=== PATIENT | female | born 2000 | race Caucasian/White ===

== ENCOUNTER 2019-08-22 02:38 | Inpatient (IN) | payer MEDICAID, SELFPAY ==
[2019-08-22] VITALS (65 sets, daily range): BP systolic 0–172; BP diastolic 0–118; PULSE 70–130; RESP 15–22; TEMP 36.7–37.2; O2SAT 89–100; BMI 23.0
[2019-08-22] MEDS: ampicillin 2,000 MG in sodium chloride 0.9% (plus) 50 ML 100 MG IV (02:34)
[2019-08-22] MEDS: lactated ringers 1,000 ML 999 ML IV (02:39)
[2019-08-22 02:44] LABS: Basophils % 0.2 %; Eosinophils % 0.3 %; Hematocrit 37.2 % (37.0-47.0); Lymphocytes # 2.1 10^3/uL (1.5-6.5); Lymphocytes % 15.9 %; Mean Corpuscular HGB Conc 32.3 g/dL (30.0-36.0); Mean Corpuscular Hemoglobin 29.5 pg (28.0-34.0); Mean Corpuscular Volume 91.4 fL (81-99); Mean Platelet Volume 12.9 fL (7.4-10.4); Monocytes # 0.9 10^3/uL (0.2-0.9); Monocytes % 6.9 %; Neutrophils # 10.3 10^3/uL (1.8-8.0); Neutrophils % 76.3 %; Nucleated Red Blood Cells % 0 %; Platelet Count 239 10^3/cmm (130-400); Red Blood Count 4.07 10^6/uL (4.1-5.3); White Blood Count 13.5 10^3/uL (4.5-13.0)
--- NOTE | 2019-08-22 03:11 | P.ANESASSM_ITS ---
Pre-Anesthetic Assessment Pre-Anesthetic Assessment: Height/Weight: Height 1.6 m Weight 58.967 kg Pulse BP Pulse Ox 107 H 99/81 100 08/22/19 04:52 08/22/19 04:52 08/22/19 03:54 Preop Diagnosis: IUP Proposed Procedure: labor epidural Was Beta Isai taken within 24 hours: N/A Social: Social History: No alcohol and No tobacco Exam: Pre-Anes Outpt Exam: alert, oriented x 3, clear to auscultation bilaterally and regular rate & rhythm Airway: Submandibular: WNL Cervical ROM: WNL MP: 1 History/ROS: No significant history except as noted Pulmonary: Pulmonary: None reported CV/HEM: CV/HEM: None reported : : None reported Hepatic: Hepatic: None reported GI: GI: None reported Metabolic: Metabolic: None reported Musc/skel: Musc/skel: None reported Neuropsych: Neuropsych: None reported Anesthetic Plan: ASA status: 1 Anesthesia: Anesthesia Evaluation Risk of > 500 ml blood loss (7ml/kg in children): No PFSH Anesthesia Female Reproductive History: : 1 Data Anesthesia CBC & Chem 7: 08/22/19 02:35 Other Labs: Laboratory Results - last 48 hr 08/22/19 02:35 WBC 13.5 H RBC 4.07 L Hgb 12.0 Hct 37.2 MCV 91.4 MCH 29.5 MCHC 32.3 RDW 13.0 Plt Count 239 MPV 12.9 H Neut % (Auto) 76.3 Lymph % (Auto) 15.9 K[place]y % (Auto) 6.9 Eos % (Auto) 0.3 Baso % (Auto) 0.2 Neut # (Auto) 10.3 H Lymph # (Auto) 2.1 Kenedy # (Auto) 0.9 Eos # (Auto) 0.0 Baso # (Auto) 0.0 Nucleated RBC % (auto) 0 Nucleated RBCs # 0.0 Cardiac Studies: No Data to Display
[2019-08-22] MEDS: dextrose 5%-lactated ringers 1,000 ML 125 ML IV (03:50)
--- NOTE | 2019-08-22 03:50 | ANES.PROC ---
Anesthesia Procedures Procedure/Date: 08/22/19 Epidural: Time Out Performed: Yes Consents Signed: Procedure Consent Consent: requested by attending/covering physician Lumbar Level: L3-L4 Epidural position: sitting Epidural procedure: sterile prep of area, 1% lidocaine to numb the area, 18 g needle, negative for paresthesia passed, neg for paresthesia, test dose given, 1.5% xylocaine 1:200k epi (4ml), placed PCEA, no systemic response, sterile dressing applied, L.U.D. no apparent complications and 0.2% Ropiavacaine @ mls/hr (13) Additional Comments: Fentanyl 100 mcg thru epidural catheter for labor pains (patient 8cm and membranes spontaneously ruptured prior to sitting up for epidural)
[2019-08-22] MEDS: oxytocin 30 UNIT/500 ML BAG 600 UNIT IV (05:29)
--- NOTE | 2019-08-22 05:45 | P.PCNOB_ITS ---
Delivery Note: Date of delivery: August 22, 2019 Pre-Delivery Course: The patient is a 18-year-old 1 at 36 weeks estimated gestational age who presented to the hospital in active labor. She had been having contractions for several hours prior to coming to the hospital. When she arrived, she was found to be 6 cm dilated. Shortly after that she had spontaneous rupture of membranes. An epidural was placed. She then progressed to complete without difficulty. Her GBS status was unknown. She received ampicillin as part of the GBS protocol, but did not receive it 4 hours prior to delivery. Her labs were otherwise unremarkable. She was positive for chlamydia. It was treated appropriately. Her blood type is B+. The remainder of her labs were within normal limits. Delivery: DELIVERY: The patient progressed to complete without difficulty. She delivered a female with a weight of 5 pounds 13 ounces with Apgars of 8, 9. The baby was delivered from the ROBERTH position. The baby's mouth and nose were suctioned at the site of the perineum. The baby was then completely delivered and placed on the mother's abdomen. The cord was then clamped and cut. There was no nuchal cord. There was no meconium. The placenta and 3 vessel cord were delivered intact shortly thereafter. The perineum and vaginal vault were carefully examined. The patient had vaginal wall lacerations on both the left and right vaginal wall. No bleeding was noted. Repair was not indicated.. Both the mother and the baby were in stable condition. A&P Assessment and plan (1) 36 weeks gestation of : Status: Acute (2) Spontaneous vaginal delivery: Status: Acute Coding Level of Care Code Acute Meeting Specialist for Chg Fwd Diagnoses 36 weeks gestation of Z3A.36 Spontaneous vaginal delivery O80
[2019-08-22] MEDS: lanolin oint 7 gm 1 APPLIC TOPICAL (08:38)
[2019-08-22] MEDS: prenatal vitamin Capsule 1 CAP PO (08:38)
[2019-08-22] MEDS: docusate sodium 100 mg Capsule PO ×2 (08:38→17:17)
[2019-08-22] MEDS: benzocaine-menthol 78 gm Canister 1 SPRAY TOPICAL (08:38)
[2019-08-22 18:04] LABS: Hematocrit 31.4 % (37.0-47.0); Hemoglobin 10.3 g/dL (11.5-15.3); Mean Corpuscular HGB Conc 32.8 g/dL (30.0-36.0); Mean Corpuscular Hemoglobin 29.7 pg (28.0-34.0); Mean Corpuscular Volume 90.5 fL (81-99); Mean Platelet Volume 12.2 fL (7.4-10.4); Platelet Count 199 10^3/cmm (130-400); Red Blood Count 3.47 10^6/uL (4.1-5.3); Red Cell Distribution Width 13.2 % (12.1-15.1); White Blood Count 13.7 10^3/uL (4.5-13.0)
[2019-08-23] MEDS: HYDROcodone-acetaminophen 5-325 mg Tablet PO (06:17)
[2019-08-23 06:19] VITALS: BP 124/74; PULSE 96; RESP 16; TEMP 36.8
[2019-08-23] MEDS: prenatal vitamin Capsule 1 CAP PO (09:21)
[2019-08-23] MEDS: docusate sodium 100 mg Capsule PO ×2 (09:21→21:51)
[2019-08-23 09:22] VITALS: BP 127/77; PULSE 87; RESP 16; TEMP 36.4; O2SAT 97
--- NOTE | 2019-08-23 11:57 | PM.OBGYPN ---
MEDIA MARKETING COORDINATOR Subjective Subjective: Interval history: The patient appears to be doing very well. Her bleeding has been within normal limits. She is breast-feeding with some minor difficulties, but appears to be doing well overall. Her pain is well controlled. She has no concerns. Labor: Station: +2 Amniotic Membrane Status: Ruptured Monitor Mode: External Contraction Pattern: Irregular Vitals/I&O/Wt Last Vital Signs Temp 97.6 F 08/23/19 09:22 Pulse 87 08/23/19 09:22 Resp 16 08/23/19 09:22 BP 127/77 08/23/19 09:22 Pulse Ox 97 08/23/19 09:22 08/22/19 08/23/19 08/23/19 22:59 06:59 14:59 Intake Total 500 / 2020.833 1000 / 3020.833 Output Total 600 / 1450 Balance -100 / 981.071 8702 / 1570.833 Weight last 48 hrs Weight 130 lb Physical Exam Narrative: EXAM NARRATIVE: The patient is alert. She appears comfortable. Her heart has a regular rate and rhythm with no murmurs appreciated. Lungs are clear to auscultation bilaterally. Her fundus is firm and below the umbilicus. Data : 08/22/19 17:55 Micro: Microbiology 08/22/19 08:45 Chlamydia trachomatis (VIDHYA) - Final Urine Random Neisseria gonorrhoeae (VIDHYA) - Final A&P Assessment and plan (1) Spontaneous vaginal delivery: The patient is doing very well. Anticipate discharge with her baby tomorrow morning. Status: Acute (2) 36 weeks gestation of : Status: Acute Attestations Medical Necessity Statement*: Routine care. Coding Level of Care Code Acute Health Educator for Chg Evelynd Diagnoses Spontaneous vaginal delivery O80 36 weeks gestation of Z3A.36
[2019-08-23 15:11] VITALS: BP 139/96; PULSE 95; RESP 16; TEMP 36.4; O2SAT 98
[2019-08-23 22:00] VITALS: BP 135/92; PULSE 96; RESP 16; TEMP 36.7; O2SAT 98
[2019-08-24 06:00] VITALS: BP 125/79; PULSE 78; RESP 16; TEMP 36.7; O2SAT 98
[2019-08-24] MEDS: docusate sodium 100 mg Capsule PO (09:06)
[2019-08-24] MEDS: prenatal vitamin Capsule 1 CAP PO (09:06)
[2019-08-24 09:31] VITALS: BP 137/90; PULSE 76; RESP 16; TEMP 36.8; O2SAT 98
--- NOTE | 2019-08-25 17:56 | PM.OBGYDC ---
Discharge Providers FOXING CUTTING MACHINE OPERATOR Date of Admission: 08/22/19 02:38 Date of Discharge: 08/24/19 Attending Provider at Admission: Salinas Benson MD Attending Provider at Discharge: Salinas Benson MD Primary Care Provider: Salinas Benson Diagnoses at Discharge Discharge Diagnosis (1) Spontaneous vaginal delivery: Status: Resolved (2) 36 weeks gestation of : Status: Resolved Reason for Visit Reason for Visit: Reason For Visit: labor Hospital Course Hospital Course: The patient presented to the hospital at 36 weeks estimated gestational age in active labor. She had spontaneous rupture of membranes. She progressed to complete without difficulty and had an unremarkable vaginal delivery. Her course was also unremarkable. Her bleeding was within normal limits. She breast-fed well. Her pain was well controlled. Information Peripartum Data: Infant Delivery Method: Vaginal Physical Exam Narrative: EXAM NARRATIVE: The patient is alert. She appears comfortable. Her heart has a regular rate and rhythm with no murmurs appreciated. Lungs are clear to auscultation bilaterally. Her fundus is firm and below the umbilicus. Discharge Data Vitals: Last Vital Signs Temp 98.3 F 08/24/19 09:31 Pulse 76 08/24/19 09:31 Resp 16 08/24/19 09:31 BP 137/90 08/24/19 09:31 Pulse Ox 98 08/24/19 09:31 Discharge Plan Discharge Patient Disposition: Home, Self-Care Condition: Stable Prescriptions: New ibuprofen 800 mg Tablet 800 mg PO TID Qty: 30 RF: 0 Continued 28-800 mg-mcg Tablet 1 tab PO DAILY RF: 0 Discharge Orders: Discharge Order (Routine); Ordered 08/24/19 Ordered By: Salinas Benson Referrals: Salinas Benson MD [Physician] - 6 Weeks (Your 6 week follow up appointment is October 02, 2019 at 9:[address] Benson. ) Discharge Diet: Usual diet Discharge Activity: Limit activity as instructed Patient Instructions: Ibuprofen (By mouth), OB Discharge Report, OB Food/Drug Interaction Guide, OB Home Care, OB Proud Parent Packet, OB Vaginal Deliveries Discharge Date/Time: 08/24/19 10:10 Discharge Attestations FOXING CUTTING MACHINE OPERATOR Time Spent in Discharge Care*: less than 30 min Coding Level of Care Code Acute Physician Liaison for Chg Fwd Diagnoses Spontaneous vaginal delivery O80 36 weeks gestation of Z3A.36
== END 2019-08-24 10:10 | disposition home or self-care (01) | DRG 806 ==
LOC: OPOB 02:38
PROVIDERS: Admitting Provider Family Medicine; Visit Provider Family Medicine
DX: O60.14X0 Preterm labor third trimester with preterm delivery third trimester, not applicable or unspecified (principal); O98.32 Other infections with a predominantly sexual mode of transmission complicating childbirth; Z37.0 Single live birth; Z3A.36 36 weeks gestation of pregnancy; A56.8 Sexually transmitted chlamydial infection of other sites
CPT/HCPCS: 12345; 36415; 51702; 59409; 85025; 85027; 87491; 87591; J0290; J2795

== ENCOUNTER → 2020-09-30 13:51 | Outpatient (BNVA) | payer MEDICAID, SELFPAY | PROVIDERS: PCP Family Medicine; Visit Provider Obstetrics & Gynecology | DX: R10.2 Pelvic and perineal pain (principal); Z20.822 Contact with and (suspected) exposure to COVID-19 | CPT/HCPCS: 87635 ==

== ENCOUNTER 2020-10-06 06:20 | Day surgery (SDC) | payer MEDICAID, SELFPAY ==
[2020-09-26 12:17] VITALS: BMI 19.5
--- NOTE | 2020-09-26 13:10 | ANES.PREANE2 ---
Pre-Anesthetic Assessment Pre-Anesthetic Assessment: Height/Weight: Height 1.6 m Weight 49.895 kg Preop Diagnosis: IUP Proposed Procedure: Operation Date: 10/06/20 09:35 Proposed Procedures p Laparoscopy Diagnostic [id number] r10.2(Not Applicable) - MD zora Miner Hysteroscopy(Not Applicable) - An Valero MD s possible Cystoscopy(Not Applicable) - An Valero MD Was Beta Isai taken within 24 hours: N/A Was Clonidine taken within 24 hours: N/A Social: Social History: No alcohol and No tobacco Exam: Pre-Anes Outpt Exam: alert, oriented x 3, clear to auscultation bilaterally and regular rate & rhythm Airway: Submandibular: WNL Cervical ROM: WNL MP: 2 Dentition: Full History/ROS: No significant history except as noted Anesthetic Plan: ASA status: 1 Anesthesia: General Risk of > 500 ml blood loss (7ml/kg in children): No PFSH Anesthesia PFSH: Medical History No pertinent past medical history Denies diabetes, asthma, hypertension, seizures, DVT/PE PCP: Dr. Benson Surgical History History of breast surgery 2016, left breast cyst removal S/P inguinal hernia repair 2016----Right-sided inguinal hernia repair by Dr. Pascual. Patient does not know if mesh was used but thinks more than likely stitches were used. Family History Grandmother Heart disease maternal Breast cancer maternal, diagnosed in her 60s Thyroid condition maternal Hypertension maternal Family/Other Diabetes maternal cousin Grandfather Hypertension maternal Denies family history of Colon cancer Ovarian cancer Hyperlipidemia Uterine cancer Stroke Female Reproductive History: Date of last menstrual period: 08/08/20 Data Anesthesia Cardiac Studies: No Data to Display
[2020-10-06] VITALS (9 sets, daily range): BP systolic 119–131; BP diastolic 76–87; PULSE 92–122; RESP 17–20; TEMP 36.4–37.6; O2SAT 96–100
--- NOTE | 2020-10-06 06:46 | W.PM.OPSUD ---
Surgery/Procedure H&P Update DATE OF PROCEDURE: October 06, 2020 DATE H&P PERFORMED: 09/26/20 H&P UPDATE INFORMATION: I have reviewed H&P completed within last 30 days, I have examined patient prior to procedure, No changes to prior documentation and H&P is in [facility] [place] date indicated PREOP DIAGNOSIS: pain PLANNED PROCEDURE: Operation Date: 10/06/20 08:00 Proposed Procedures p Laparoscopy Diagnostic [id number] 37098 r10.2(Not Applicable) - An Valero MD s Hysteroscopy(Not Applicable) - An Valero MD s possible Cystoscopy(Not Applicable) - An Valero MD
[2020-10-06] MEDS: sodium chloride 0.9% 1,000 ML 30 ML IV (07:00)
[2020-10-06 07:29] LABS: OR HCG Qualitative Urine Negative (Negative)
--- NOTE | 2020-10-06 07:29 | P.ANESUD_ITS ---
Pre-Anesthetic Update Pre-Anesthetic Assessment: Date of Surgery/Procedure: 10/06/20 Preop Morenita gnosis: Chronic pelvic pain Proposed Procedure: Operation Date: 10/06/20 08:00 Proposed Procedures p Laparoscopy Diagnostic [id number] 18728 r10.2(Not Applicable) - An Valle MD s Hysteroscopy(Not Applicable) - An Valero MD s possible Cystoscopy(Not Applicable) - An Valero MD Any changes to Pre-Anesthetic Assessment?: No Labs Last 48hrs: Laboratory Results - last 48 hr 10/06/20 07:27 Urine HCG, Qual Negative Vitals: Temperature 99.7 F H 10/06/20 06:34 Temperature Source Temporal Artery S can 10/06/20 06:34 Pulse Rate 121 H 10/06/20 06:34 Respiratory Rate 19 H 10/06/20 06:34 Blood Pressure 126/83 10/06/20 06:34 Blood Pressure Kristan n 97 10/06/20 06:34 Pulse Oximetry 97 10/06/20 06:34 Oxygen Delivery Me thod 10/06/20 06:35 Exam: Pre-Anes Outpt Exam: alert, oriented x 3, clear to auscultation bilaterally and regular rate & rhythm Cardiac Studies: No Data to Display
[2020-10-06 07:38] LABS: Basophils % 0.8 %; Eosinophils # 0.1 10^3/uL (0.0-0.8); Eosinophils % 1.4 %; Hematocrit 40.3 % (37.0-47.0); Hemoglobin 13.4 g/dL (11.5-15.3); Lymphocytes # 1.9 10^3/uL (0.8-4.8); Lymphocytes % 37.5 %; Mean Corpuscular HGB Conc 33.3 g/dL (30.0-36.0); Mean Corpuscular Volume 87.2 fL (81-99); Mean Platelet Volume 10.6 fL (7.4-10.4); Monocytes # 0.4 10^3/uL (0.2-0.9); Monocytes % 7.6 %; Neutrophils # 2.71 10^3/uL (1.8-7.7); Neutrophils % 52.5 %; Nucleated Red Blood Cells % 0 %; Platelet Count 249 10^3/cmm (130-400); Red Blood Count 4.62 10^6/uL (4.1-5.3); Red Cell Distribution Width 12.3 % (12.1-15.1); White Blood Count 5.2 10^3/uL (4.0-10.0)
[2020-10-06] MEDS: silver nitrate applicator 1 EACH TOPICAL (09:24)
--- NOTE | 2020-10-06 09:35 | PM.OP ---
Operative Report Date of procedure: October 06, 2020 OPERATIVE REPORT Date of surgery: 10/06/2020 Date of dictation:10/06/2020 Preoperative diagnosis: Chronic pelvic pain not responsive to hormones Postoperative diagnosis/findings: 8-week size retroverted uterus, mobile, nontender, no adnexal masses, on hysteroscopy bilateral ostia visualized-no abnormal endometrial or endocervical pathology, and cystoscopy no lesions or defects noted, on laparoscopy normal tubes and ovaries bilaterally, uterus normal, no signs of endometriosis noted, appendix normal, no other acute intra-abdominal pathology. Spleen was visualized--possible splenomegaly. Procedure done: Diagnostic laparoscopy, hysteroscopy, dilation and curettage, cystoscopy. Specimens removed/disposition of specimens: Endometrial curettings-sent to pathology Surgeon: Dr. An Bland assistant restaurant general manager: Desiree Ricardo Anesthesia: General endotracheal tube anesthesia Estimated blood loss: 25 ml Intravenous fluids: 700 mL of LR Urine output: 500 mL of clear urine at the end of procedure Medications: As per anesthesia records Complications: None, patient was extubated and taken to the recovery room in a stable condition. PROCEDURE: After consents were signed patient was taken to the operating room where she was placed under general anesthesia without any difficulty. She was placed supine on the table in the lithotomy position. Exam under anesthesia revealed findings noted above. She was then prepped and draped in usual sterile fashion. Palacio catheter was placed. Weighted speculum and anterior wall retractors were placed in the vagina, cervix visualized and grasped with a tenaculum. The cervix was dilated to a 16 Pablo dilator. This allowed placement of a 3 mm hysteroscope into the uterine cavity without any difficulty. Once the hysteroscope was placed in the uterine cavity, the endocervical canal was visualized and appeared normal .the uterine cavity was visualized and bilateral ostia were visualized and just fluffy endometrial tissue noted. The hysteroscope was withdrawn and sharp curettage was performed.The endometrial curettings obtained were sent to pathology . When tenaculum was removed it was noted that there was a tear in the cervix and this was repaired with 0 Vicryl in a continuous interlocking fashion and good reapproximation and hemostasis was achieved. The tear was approximately 1-1/2 cm long extending from 11:00 to 12:00 on the cervix. Cystoscopy was performed at this time and findings noted as above-no abnormalities. Cystoscope was withdrawn and Palacio catheter was replaced. ZUMI uterine manipulator was placed into the uterus without any difficulty. Instruments were removed from the vagina and the legs were lowered. Attention was turned towards the abdomen where local anesthetic was injected in to her umbilicus. A 10 mm skin incision was made and a 10 mm port was placed through the umbilicus using an open technique--- fascia was identified and tented up with Douglas clamps and directly incised using curved Mayos. Peritoneum was then bluntly entered digitally and palpation revealed no adhesions around site of entry. Alford trocar was then attached to the fascia and inflated. Once intra-abdominal entry was confirmed gas was turned on and intra-abdominal opening pressure was 2. The abdomen is insufflated to the pressure was 14. Survey of the abdomen revealed findings noted above-everything normal except for visualized spleen---possible splenomegaly. One 5 mm trocar was placed into the left lower quadrant under direct visualization after injecting local anesthetic. Using an atraumatic grasper a thorough inspection of the pelvis was [id number], bilateral ovarian fossa, bladder peritoneum, uterosacral ligaments everything was visualized and within normal limits. The uterus was just tilted more to the left side than the right. Everything otherwise was normal without any signs of endometriosis additions or scarring. Appendix was visualized and normal. Bowel was noted to be distended with stool.. Camera was withdrawn at this time. Trochars were removed under direct visualization. All instruments removed from the abdomen and the abdomen was desufflated. The fascia on the umbilical port was closed with 0 Vicryl in a continuous fashion and good reapproximation was obtained-care was taken to tent up the fascia throughout the closure. The skin incisions was closed with 4-0 Monocryl in a subcuticular fashion good reapproximation and hemostasis was noted. The incisions were dressed with Steri-Strips Telfa and Tegaderm. The ZUMI and Palacio catheter were removed and good hemostasis was noted. The patient was extubated without any difficulty and taken to the recovery room in a stable condition. FOLLOW UP: Follow-up in 2 weeks and 6 weeks with surgeon Medication at discharge Colace 100 mg by mouth every 12 hours when necessary constipation, 30 tablets, no refills Ibuprofen 800 mg by mouth every 8 hours when necessary pain, 60 tablets, no refills. Lavina 5/325 mg 1 tablet by mouth every 6 hours when necessary pain,25 tablets, no refills Continue other home medication DISPOSITION: Home in a stable condition This documentation was created by [employer] gravity meter observer software (known for inherent gravity meter observer error). Every effort was made to assure accuracy of gravity meter observer. Any obvious errors or omissions should be clarified with the author of the document. Pre-op Diagnosis: Chronic pelvic pain
[2020-10-06] MEDS: fentaNYL 50 mcg/mL INJ 2mL IVP (09:46)
--- NOTE | 2020-10-06 09:46 | P.PCN_ITS ---
PACU note PACU note: VSS, Good respiratory effort, report to IRON BENDER Post-Anesthesia Exam: awake
--- NOTE | 2020-10-06 09:46 | PM.PACU ---
PACU note PACU note: VSS, Good respiratory effort, report to ANIMAL WARDEN Post-Anesthesia Exam: awake
--- NOTE | 2020-10-06 09:56 | SUR.PHASEI ---
PT C/O OF PAIN BEING WORSE TO ABD EARLIER , SEE MED GIVEN . ABD SOFT PT SLEEPS OFF AND ON NOW, FACE SCALE FOR PAIN IS 2, VSS. REPORT TO OPS NURSE AT BEDSIDE.
[2020-10-06] MEDS: HYDROcodone-acetaminophen 5-325 mg Tablet 1 TAB PO (10:32)
--- NOTE | 2020-10-06 10:40 | SUR.PHASEI ---
Administered pain medication PO, patient complains of nausea feeling. Will monitor prior to removing IV
--- NOTE | 2020-10-06 14:08 | ANE.PACU2 ---
Inpatient post-anesthesia follow up: Airway intact: Yes Vital signs: Temperature 97.7 F Pulse Rate 95 Respiratory Rate 17 Blood Pressure 120/77 Pulse Oximetry 98 Oxygen Delivery Me thod Room Air Oxygen Flow Rate Fraction of Inspir ed Oxygen Hydration adequate: Yes Nausea and vomiting: No Pain level: 2 Mental status: Baseline
== END 2020-10-06 11:05 | disposition home or self-care (01) ==
PROVIDERS: Anesthesiology; PCP Family Medicine; Visit Provider Obstetrics & Gynecology
PROC: (CPT 49320; principal; 2020-10-06 08:00)
PROC: 0UJD8ZZ Inspection of Uterus and Cervix, Via Natural or Artificial Opening Endoscopic (ICD-10-PCS; CPT 58555; 2020-10-06 08:00)
PROC: 0TJB8ZZ Inspection of Bladder, Via Natural or Artificial Opening Endoscopic (ICD-10-PCS; CPT 52000; 2020-10-06 08:00)
PROC: (CPT 58120; 2020-10-06 08:00)
DX: R10.2 Pelvic and perineal pain (principal); G89.29 Other chronic pain
CPT/HCPCS: 49320; 58558; 36415; 81025; 84703; 85025; 86850; 86900; 88305; J1100; J2405; J2704; J2710; J3010; J3490; J7030

== ENCOUNTER 2020-11-22 13:23 | Outpatient (CLI) | payer MEDICAID, SELFPAY ==
--- NOTE | 2020-11-22 | US_ITS ---
WS: [id number] Complete ABDOMINAL ULTRASOUND HISTORY: SPLEEN ENLARGED COMPARISON: None available. Liver: 14.0 cm in length. Liver is normal size and echogenicity with no mass or intrahepatic dilatati on. Gallbladder: Normally distended with no gallstones, wall thickening or pericholecystic fluid. Gallbladder wall thickness: 1.6 cm. Pancreas: Normal size and echogenicity. CBD: 2.0 cm. Right kidney: 10.6 cm x 3.0 cm x 4.1 cm. No mass, cortical thickening or hydronephrosis. Left kidney: 11.0 cm x 4.3 cm x 4.3 cm. No mass, cortical thickening or hydronephrosis. Spleen: Normal size and echogenicity. Spleen measures 11 cm in length. Normal concavity at the hilum. Abdominal aorta and IVC are within normal limits. No ascites. US/US abdomen complete* [id number] IMPRESSION: Normal complete abdomen ultrasound. Normal size spleen.
== END 2020-11-22 13:24 | disposition home or self-care (01) ==
LOC: RADOUTREAD 13:27
PROVIDERS: PCP Family Medicine; Visit Provider Family Medicine
DX: R16.1 Splenomegaly, not elsewhere classified (principal)
CPT/HCPCS: 88175

== ENCOUNTER → 2021-12-11 15:40 | Outpatient (BNVA) | payer MEDICAID, SELFPAY | PROVIDERS: Visit Provider Obstetrics & Gynecology | DX: Z12.4 Encounter for screening for malignant neoplasm of cervix (principal) | CPT/HCPCS: 88175 ==

== ENCOUNTER → 2022-07-16 07:45 | Outpatient (BNVA) | payer MEDICAID, SELFPAY | PROVIDERS: Visit Provider Nurse Practitioner Women's Health | DX: N93.9 Abnormal uterine and vaginal bleeding, unspecified (principal) | CPT/HCPCS: 76830 ==

== ENCOUNTER → 2023-01-04 16:07 | Outpatient (BNVA) | payer MEDICAID, SELFPAY | PROVIDERS: Visit Provider Nurse Practitioner Women's Health | DX: Z12.4 Encounter for screening for malignant neoplasm of cervix (principal); Z01.419 Encounter for gynecological examination (general) (routine) without abnormal findings; N93.9 Abnormal uterine and vaginal bleeding, unspecified; R10.2 Pelvic and perineal pain | CPT/HCPCS: 87624 ==

== ENCOUNTER → 2023-02-04 08:42 | Outpatient (BNVA) | payer MEDICAID, SELFPAY | PROVIDERS: Visit Provider Obstetrics & Gynecology | DX: R87.619 Unspecified abnormal cytological findings in specimens from cervix uteri (principal); Z01.818 Encounter for other preprocedural examination | CPT/HCPCS: 81025; 88305 ==

== ENCOUNTER 2024-04-03 03:03 | Inpatient (IN) | payer MEDICAID, SELFPAY ==
[2024-04-03] VITALS (9 sets, daily range): BP systolic 112–130; BP diastolic 64–77; PULSE 76–130; RESP 16; TEMP 36.5–36.8; O2SAT 96
[2024-04-03] MEDS: lactated ringers 1,000 ML 999 ML IV (03:16)
[2024-04-03 03:31] LABS: Basophils % 0.2 %; Eosinophils # 0.1 10^3/uL (0.0-0.8); Hematocrit 34.5 % (36-47); Lymphocytes # 2.5 10^3/uL (0.8-4.8); Lymphocytes % 23.6 %; Mean Corpuscular HGB Conc 32.5 g/dL (30-55); Mean Corpuscular Hemoglobin 28.4 pg (27-33); Mean Corpuscular Volume 87.6 fl (85-98); Mean Platelet Volume 11.1 fL (7.4-10.4); Monocytes # 0.8 10^3/uL (0.2-0.9); Monocytes % 7.9 %; Neutrophils # 6.97 10^3/uL (1.8-7.7); Neutrophils % 66.6 %; Nucleated Red Blood Cells % 0 %; Platelet Count 189 10^3/cmm (157-399); Red Blood Count 3.94 10^6/uL (3.85-5.65); Red Cell Distribution Width 13.5 % (12.1-15.1); White Blood Count 10.44 10^3/uL (3.29-11.43)
[2024-04-03] MEDS: oxytocin 30 UNIT/500 ML BAG 600 UNIT IV (04:30)
--- NOTE | 2024-04-03 04:39 | PM.OPHPUD ---
Labor & Delivery H&P Update Date of Procedure: April 03, 2024 Date H&P Performed: 04/02/24 Changes to previous documentation: The patient arrived at the hospital having consistent contractions and with her cervix being dilated to 4 cm, and spontaneous rupture membranes. Admission Diagnosis: 23-year-old 2 para 1-0-0-1 at 38 weeks estimated gestational age Planned procedure: Vaginal delivery Other information: The patient is a pleasant 23-year-old female who has had an unremarkable . She has had consistent care. Her blood type was B+. Her antibody screen was negative. She passed her glucose screen. She is rubella immune. She is GBS negative. The remainder of her infectious disease profile is within normal limits. She began having contractions prior to arriving at the hospital. She had spontaneous rupture membranes also just prior to arriving at the hospital. Related Problem List Diagnoses (1) 28 weeks gestation of : A&P Assessment and plan (1) 28 weeks gestation of : I anticipate routine labor and delivery Status: Acute
--- NOTE | 2024-04-03 04:42 | PM.DELIVERY ---
Delivery Note: Date of delivery: April 03, 2024 Pre-delivery diagnoses: 23-year-old 2 para 1-0-0-1 at 38 weeks estimated gestational age with spontaneous rupture membranes Post-delivery diagnoses: Status post spontaneous vaginal delivery Delivering Physician: Salinas Benson Estimated blood loss (mL): 50 Pre-Delivery Course: The patient presented to the hospital with consistent contractions and spontaneous rupture membranes. She quickly progressed to complete. She intended to have a an epidural but progressed to quickly to have 1. Delivery: DELIVERY: The patient progressed to complete without difficulty. She delivered a female with a weight of 6 pounds 12 ounces with Apgars of 8, 9. The baby was delivered from the ROBERTH position. The baby's mouth and nose were suctioned at the site of the perineum. The baby was then completely delivered and placed on the mother's abdomen. The cord was then clamped and cut. There was no nuchal cord. Terminal meconium was noted. The placenta and 3 vessel cord were delivered intact shortly thereafter. The perineum and vaginal vault were carefully examined. A first-degree posterior midline tear was noted. Repair was not required. Both the mother and the baby were in stable condition. History History History 2 Term 2 0 Miscarriages/Ectopic 0 Living Children 2 A&P Assessment and plan (1) Spontaneous vaginal delivery: I anticipate routine care (2) 38 weeks gestation of : Coding Level of Care Code Acute Code for Chg Fwd Diagnoses Spontaneous vaginal delivery O80 38 weeks gestation of Z3A.38
[2024-04-03] MEDS: ibuprofen 800 mg tablet PO ×3 (08:16→20:55)
[2024-04-03] MEDS: PRENATAL VIT NO.130/IRON/FOLIC 1 EACH TABLET PO (08:16)
[2024-04-03] MEDS: docusate sodium 100 mg Capsule PO ×2 (08:16→20:55)
[2024-04-03 18:05] LABS: Hematocrit 32.5 % (36-47); Mean Corpuscular Hemoglobin 28.3 pg (27-33); Mean Corpuscular Volume 88.3 fl (85-98); Mean Platelet Volume 11.5 fL (7.4-10.4); Platelet Count 234 10^3/cmm (157-399); Red Blood Count 3.68 10^6/uL (3.85-5.65); Red Cell Distribution Width 13.6 % (12.1-15.1); White Blood Count 17.11 10^3/uL (3.29-11.43)
[2024-04-04 04:02] VITALS: BP 98/62; PULSE 73; RESP 16; TEMP 36.8; O2SAT 97
--- NOTE | 2024-04-04 05:13 | P.DS_ITS ---
Discharge Providers SPORTS DIRECTOR Date of Admission: 04/03/24 03:03 Date of Discharge: 04/04/24 Attending Provider at Admission: Salinas Benson MD Attending Provider at Discharge: Salinas Benson MD Primary Care Provider: [employer] Diagnoses at Discharge Discharge Diagnosis (1) Spontaneous vaginal delivery: Status: Acute (2) 38 weeks gestation of : Status: Acute Reason for Visit Reason for Visit: Possible ROM,Contractions Hospital Course Hospital Course The patient presented to the hospital with spontaneous rupture of membranes. She quickly progressed to complete and had an unremarkable vaginal delivery. Her course has been unremarkable. Her pain has been well-controlled. Her bleeding has been within normal limits. She has been breast-feeding well. Information Peripartum Data: Infant Delivery Method: Vaginal Physical Exam Narrative: The patient is alert. She appears comfortable. Her heart has a regular rate and rhythm with no murmurs appreciated. Lungs are clear to auscultation bilaterally. Her fundus is firm and below the umbilicus. History History History 2 Term 2 0 Miscarriages/Ectopic 0 Living Children 2 Discharge Data Studies Completed and Pending Laboratory Results WBC 17.11 10^3/uL (3.29-11.43) H 04/03/24 15:50 RBC 3.68 10^6/uL (3.85-5.65) L 04/03/24 15:50 Hgb 10.40 g/dL (11.27-16.99) L 04/03/24 15:50 Hct 32.5 % (36-47) L 04/03/24 15:50 MCV 88.3 fl (85-98) 04/03/24 15:50 MCH 28.3 pg (27-33) 04/03/24 15:50 MCHC 32.0 g/dL (30-55) 04/03/24 15:50 RDW 13.6 % (12.1-15.1) 04/03/24 15:50 Plt Count 234 10^3/cmm (157-399) 04/03/24 15:50 MPV 11.5 fL (7.4-10.4) H 04/03/24 15:50 Neut % (Auto) 66.6 % 04/03/24 03:00 Lymph % (Auto) 23.6 % 04/03/24 03:00 Addison % (Auto) 7.9 % 04/03/24 03:00 Eos % (Auto) 1.0 % 04/03/24 03:00 Baso % (Auto) 0.2 % 04/03/24 03:00 Neut # (Auto) 6.97 10^3/uL (1.8-7.7) 04/03/24 03:00 Lymph # (Auto) 2.5 10^3/uL (0.8-4.8) 04/03/24 03:00 Addison # (Auto) 0.8 10^3/uL (0.2-0.9) 04/03/24 03:00 Eos # (Auto) 0.1 10^3/uL (0.0-0.8) 04/03/24 03:00 Baso # (Auto) 0.0 10^3/uL (0.0-0.1) 04/03/24 03:00 Nucleated RBC % (auto) 0 % 04/03/24 03:00 Nucleated RBCs # 0.0 /100WBC 04/03/24 03:00 Blood Type B Positive 04/03/24 03:00 Rho(D) Type Rh positive 04/03/24 03:00 Antibody Screen Negative 04/03/24 03:00 Vitals Last Vital Signs Temp 98.3 F 04/04/24 04:02 Pulse 73 04/04/24 04:02 Resp 16 04/04/24 04:02 BP 98/62 04/04/24 04:02 Pulse Ox 97 04/04/24 04:02 O2 Del Method Room Air 04/04/24 04:02 Results Labs OB ([facility]): Blood Type B Positive 04/03/24 Antibody Screen Negative 04/03/24 Hct 32.5 % (36-47) L 04/03/24 Hgb 10.40 g/dL (11.27-16.99) L 04/03/24 Rho(D) Type Rh positive 04/03/24 Plt Count 234 10^3/cmm (157-399) 04/03/24 HCG, Qual Negative (Negative) 02/04/23 Pap Smear Interpret See note A 01/04/23 Discharge Plan Discharge Patient Disposition: Home Condition: Stable Prescriptions: New ibuprofen 800 mg Tablet 800 mg PO TID Qty: 45 0RF Vitamin 27 mg iron- 800 mcg Tablet 1 tab PO DAILY Qty: 90 0RF Discontinued norethindrone acetate 5 mg tablet 5 mg PO DAILY Qty: 90 1RF Discharge Orders: Discharge Order (Routine); Ordered 04/04/24 Ordered By: Salinas Benson Discharge Diet: Usual diet Discharge Activity: Limit activity as instructed Patient Instructions: Opioid Safety Discharge Attestations SPORTS DIRECTOR Time Spent in Discharge Care*: less than 30 min Coding Level of Care Code Acute Code for Chg Fwd Diagnoses Spontaneous vaginal delivery O80 38 weeks gestation of Z3A.38
[2024-04-04] MEDS: PRENATAL VIT NO.130/IRON/FOLIC 1 EACH TABLET PO (10:04)
[2024-04-04] MEDS: docusate sodium 100 mg Capsule PO (10:05)
[2024-04-04] MEDS: ibuprofen 800 mg tablet PO (10:05)
[2024-04-04 10:55] VITALS: BP 114/76; PULSE 77; RESP 16; TEMP 36.5; O2SAT 98
[2024-04-04 11:04] VITALS: BP 114/76; PULSE 77; RESP 16; TEMP 36.5; O2SAT 98
== END 2024-04-04 11:04 | disposition home or self-care (01) | DRG 807 ==
LOC: OPOB 03:04 → OBGYN 03:04
PROVIDERS: Admitting Provider Family Medicine; Visit Provider Family Medicine
DX: O77.0 Labor and delivery complicated by meconium in amniotic fluid (principal); Z37.0 Single live birth; Z3A.38 38 weeks gestation of pregnancy
CPT/HCPCS: 36415; 59025; 59409; 83986; 85025; 85027; 86850; 86900; 98960; 99211; J2590; J7120